=== PATIENT | male | born 1960 | race Caucasian/White ===

== ENCOUNTER → 2017-01-22 | Outpatient (CLI) | payer BC ==
[~2017-01-22] MED LIST: LRT5; LRT5 PO
--- NOTE | 2017-01-22 16:38 | DIAGNOSTIC IMAGING REPORT ---
ULTRASOUND L VENOUS DOPP LOWER EXT UNILAT CLINICAL HISTORY: Left leg pain COMPARISON STUDY: No previous studies for comparison. FINDINGS: No thrombus is visualized within the left common femoral vein. There is extensive thrombus within the left superficial femoral vein, and popliteal vein. There is involvement of the peroneal vein. IMPRESSION: Extensive left lower extremity DVT involving the left superficial femoral vein, popliteal vein, and peroneal vein. Electronically signed by: Christiano Wisdom M.D. 01/22/2017 4:37 PM Dictated Date/Time: 01/22/2017 4:36 PM
== END | disposition home or self-care (01) ==
LOC: C.ULTR 15:56
PROVIDERS: ATTEND Student in an Organized Health Care Education/Training Program
DX: M79.669 Pain in unspecified lower leg (principal); I82.432 Acute embolism and thrombosis of left popliteal vein; I82.492 Acute embolism and thrombosis of other specified deep vein of left lower extremity; I82.412 Acute embolism and thrombosis of left femoral vein

== ENCOUNTER → 2017-06-05 | Outpatient (CLI) | payer OTHER ==
--- NOTE | 2017-06-05 10:37 | DIAGNOSTIC IMAGING REPORT ---
CHEST 2 VIEWS ROUTINE CLINICAL HISTORY: R68.89 COMPARISON STUDY: No previous studies for comparison. FINDINGS: The cardiac and mediastinal contours are normal. There is no evidence of focal pulmonary consolidation. There is no evidence of failure. No pleural effusions are visualized.[ There are mild linear atelectatic changes the lung bases IMPRESSION: No active disease in the chest. Electronically signed by: Christiano Wisdom M.D. 06/05/2017 10:36 AM Dictated Date/Time: 06/05/2017 10:32 AM
== END | disposition home or self-care (01) ==
LOC: C.RAD1850 10:23
PROVIDERS: ATTEND Family Medicine
DX: R68.89 Other general symptoms and signs (principal)